=== PATIENT | female | born 1970 | race American Indian/Alaskan Native ===

== ENCOUNTER 2016-04-14 08:47 | Day surgery (SDC) | payer BC, OTHER ==
--- NOTE | 2016-04-11 12:21 | Anesthesia Consultation ---
Anesthesia Consult and Med Hx Date of service: 04/11/16 (Scheduled for hysteroscopy and D&C with Dr. Newell on ) - Airway Anesthetic Teeth Evaluation: Good ROM Head & Neck: Adequate Mental/Hyoid Distance: Adequate Mallampati Class: Class II Intubation Access Assessment: Probably Good - Pulmonary Exam CTA: Yes - Cardiac Exam Cardiac Exam: RRR - Pre-Operative Health Status ASA Pre-Surgery Classification: ASA1, ASA2 Proposed Anesthetic Plan: General - Pre-Anesthesia Comment Pre-Anesthesia Comments: No previous anesthesia complications. - Pulmonary Hx Smoking: No Hx Asthma: No - Cardiovascular System Hx Hypertension: No - Central Nervous System Hx Seizures: No Hx Psychiatric Problems: No - Gastrointestinal Hx Gastroesophageal Reflux Disease: No - Endocrine Hx Non-Insulin Dependent Diabetes: No - Hematic Hx Anemia: No - Other Systems Hx Alcohol Use: Yes (occas) Hx Cancer: No Hx Obesity: No
[2016-04-11 12:34] LABS: Basophils % (Auto) 0.3 % (0.0-1.8); Eosinophils % (Auto) 3.8 % (0.0-4.3); Hematocrit 39.2 % (30.3-42.9); Mean Corpuscular HGB Conc 33 % (30-34); Mean Corpuscular Hemoglobin 30 pg (28-32); Mean Corpuscular Volume 90 fl (79-97); Platelet Count 210 K/mm3 (140-440); Red Blood Count 4.37 M/mm3 (3.65-5.03); Red Cell Distribution Width 14.1 % (13.2-15.2)
[2016-04-11 13:13] LABS: Anion Gap 16 mmol/L; Blood Urea Nitrogen 12 mg/dL (7-17); Calcium 9.3 mg/dL (8.4-10.2); Carbon Dioxide 24 mmol/L (22-30); Glucose 91 mg/dL (65-100); Potassium 4.4 mmol/L (3.6-5.0); Sodium 139 mmol/L (137-145)
--- NOTE | 2016-04-13 14:14 | History and Physical Report ---
History of Present Illness Date of examination: 04/11/16 History of present illness: Patient has been reassessed/reevaluated/re-examined. H&P has been reviewed. No interval changes. This is a 46 years old female who presents with menstrual disorder. The patient complains of spotting, menses and heavy bleeding, but denies lack of menses, dysmenhorrhea, she may be , history of thyroid disease, history of fibroids, history of bleeding disorders, lightheadness, orthostatic symptoms , fatigue and cramping. Menstrual periods have been irregular. Patient with h/ o endometrial polyps and cervical stenosis Vital Signs: Patient Profile: 46 Years Old Female LMP: 03/26/2016 Height: 67 inches (170.18 cm) Weight: 211 pounds (95.91 kg) BMI: 33.04 BSA: 2.07 Menstrual History: LMP (date): 03/26/2016 Current Method of Contraception: None Past History : 4 Term Births: 3 Premature Births: 0 Living Children: 3 Para: 3 Mult. Births: 0 Prev : 0 Aborta: 1 Elect. Ab: 0 Spont. Ab: 1 Ectopics: 0 PROTECTION CONSULTANT History Operations: inginal hernia Lsc ovarian cystectomy Tubal Ligation (1991) LTL Cholecystectomy (05/04/2014) Operative Hysteroscopy: (09/11/2014) Abnormal PAP: positive Uterine Anomaly: negative Infection History HIV Risk Eval: no Hx of STD: None Active Medications (reviewed today): VALTREX 500 MG TABS (VALACYCLOVIR HCL) one by mouth twice a day for 3 days BRISDELLE 7.5 MG CAPS (PAROXETINE MESYLATE) Take one by mouth at bedtime Current Allergies (reviewed today): No known allergies Past Medical History: Cerivical stenosis Endometrial polyps Past Surgical History: Reviewed history from 09/11/2014 and no changes required: inginal hernia Lsc ovarian cystectomy Tubal Ligation (1991) LTL Cholecystectomy (05/04/2014) Operative Hysteroscopy: (09/11/2014) Family History Summary: Reviewed history Last on 07/26/2015 and no changes required:04/13/2016 General Comments - FH: No Family History of Breast Cancer No Family History of Cervical Cancer No Family History of Colon Cancer No Family History of Diabetes, Hypertension, or Coronary Artery Disease No Family History of DVT/PE on OCP Social History: Reviewed history from 06/23/2013 and no changes required: Patient is single Farmworker [employer] Risk Factors: Smoked Tobacco Use: Never smoker Smokeless Tobacco Use: Never Passive smoke exposure: no Drug use: no HIV high-risk behavior: no Alcohol use: yes Type: occ Exercise: no Seatbelt use: 100 % Review of Systems General Denies fever, chills, sweats, anorexia, fatigue, weakness, malaise, weight loss and sleep disorder. Complains of abnormal vaginal bleeding. Denies vaginal discharge, incontinence, dysuria, hematuria, urinary frequency, amenorrhea, menorrhagia, genital sores, decreased libido, painful periods, painful sex, urinary urgency, hot flashes, vaginal dryness, vaginal itching and vaginal odor. CV Denies chest pains, palpitations, syncope, dyspnea on exertion, orthopnea, PND and peripheral edema. Resp Denies cough, dyspnea at rest, excessive sputum, hemoptysis, wheezing and pleurisy. GI Denies nausea, vomiting, diarrhea, constipation, change in bowel habits, abdominal pain, melena, hematochezia, jaundice, gas/bloating, indigestion/ heartburn, dysphagia and odynophagia. Breast Denies left breast lump, right breast lump, nipple discharge, bloody discharge from nipple, breast pain, abnormal mammogram and breast enlargement. Psych Denies depression, anxiety, irritability and mood swings. Past History Past Medical History: other (See HPI) Past Surgical History: Other (See HPI) Family history: other (See HPI) Medications and Allergies Allergies Allergy/AdvReac Type Severity Reaction Status Date / Time No Known Allergies Allergy Verified 04/10/16 10:49 Home Medications Medication Instructions Recorded Confirmed Last Taken Type No Known Home Medications [No 09/04/14 04/10/16 Unknown History Reported Home Medications] Review of Systems Constitutional: other (See HPI) Exam - Physical Exam Narrative exam: HEENT: normocephalic, no lesions or deformities Neck/Thyroid: supple, thyroid normal Skin no significant abnormal lesions or rashes Chest: respiratory effort normal, clear to auscultation CV: regular, normal S1-S2, no murmur, no rub, no gallop Abdomen: normal bowel sounds, soft, nontender, no HSM Musculoskeletal: grossly normal ROM in joints, no joint tenderness or muscle weakness Neuro: no gross anomalities Extremities: no clubbing, cyanosis, or edema PROTECTION CONSULTANT Exams Vulva/Vagina: normal appearance, white discharge, lesions. No evidence of cystocele or rectocele. Cervix: No lesions; no cervical motion tenderness Uterus: normal size and position, midline, mobile Adnexae: no masses or tenderness Rectovaginal: exam defered - Constitutional Vitals: Temp Pulse Resp BP Pulse Ox 97.7 F 74 14 138/88 04/11/16 11:50 04/11/16 11:50 04/11/16 11:50 04/11/16 11:50 Results - Labs CBC & Chem 7: 04/11/16 11:10 04/11/16 11:10 Assessment and Plan - Patient Problems (1) Post-menopausal bleeding Current Visit: Yes Status: Acute Plan to address problem: Diagnosis explained to patient . Questions answered. Diagnosis of post menopausal explained. Malignancy risk explained to patient. Indications for and description of the procedure given. Questions answered. Patient agrees to proceed with hysteroscopy Discussed risk of surgery including infection, bleeding and risk of perforating her uterus. Questions answered. Patient understands and desires to proceed The patient was instructed/informed the following: The normal length of hospital stay for this procedure. (2) Endometrial polyp Current Visit: Yes Status: Acute Plan to address problem: Possible etiology of #1 Discussed with the patient and a preop visit and confirmed here prior to her procedure and if benign findings are seen at time of hysteroscopy with the desired endometrial ablation with NovaSure. Patient understands and is still the risks of possible uterine perforation. Also understands the system is set to not have any burning if perforation is detected. All questions answered and patient desires to proceed (3) Hyperlipidemia Current Visit: Yes Status: Chronic Qualifiers: Hyperlipidemia type: unspecified Qualified Code(s): E78.5 - Hyperlipidemia , unspecified (4) Cervical stenosis (uterine cervix) Current Visit: Yes Status: Chronic Plan to address problem: Diagnosis explained to patient . Questions answered. Patient understands that this diagnosis has prevented the ablility to perform sonohysterogram to evaluate and need for operative hysteroscopy
--- NOTE | 2016-04-14 09:57 | Anesthesia Day of Surgery ---
Anesthesia Day of Surgery - Day of Surgery Patient Examined: Yes Patient H&P Reviewed: Yes Patient is NPO: Yes
[2016-04-14] MEDS ORDERED: PEPCID PO NR (10:00)
[2016-04-14] MEDS ORDERED: VERSED IV NR (10:00)
[2016-04-14] MEDS ORDERED: LACTATED RINGERS 1,000 ML IV SCH (10:00)
[2016-04-14] MEDS ORDERED: ZOFRAN IV PRN (10:29)
[2016-04-14] MEDS ORDERED: PERCOCET 5/325 PO PRN (10:29)
[2016-04-14] MEDS ORDERED: DILAUDID IV PRN (10:29)
[2016-04-14] MEDS ORDERED: DIPRIVAN 10 MG/ML IV ONE (10:34)
[2016-04-14] MEDS ORDERED: XYLOCAINE MPF 2% ONE (10:58)
[2016-04-14] MEDS ORDERED: ZOFRAN ONE (11:18)
[2016-04-14] MEDS ORDERED: TORADOL ONE (11:18)
[2016-04-14] MEDS ORDERED: ZEMURON IV ONE (12:09)
[2016-04-14] MEDS ORDERED: QUELICIN ONE (12:09)
[2016-04-14] MEDS ORDERED: ANCEF ONE ×2 (12:09)
[2016-04-14] MEDS ORDERED: NACL P/F VIAL (10 ML) 10 ML ONE (12:17)
[2016-04-14] MEDS ORDERED: NACL 0.9% IR ONE ×2 (12:19→12:30)
[2016-04-14] MEDS ORDERED: LACTATED RINGERS 1,000 ML ONE (12:19)
[2016-04-14] MEDS ORDERED: BLOXIVERZ ONE (12:26)
[2016-04-14] MEDS ORDERED: ROBINUL ONE (12:26)
[2016-04-14] MEDS ORDERED: MARCAINE 0.5% INFILTRATI ONE (12:30)
[2016-04-14] MEDS ORDERED: DILAUDID ONE (12:43)
--- NOTE | 2016-04-14 12:55 | Short Stay Summary ---
Short Stay Documentation Date of service: 04/14/16 Narrative H&P: See dictated H&P - History Principal diagnosis: postmenopausal bleeding, cervical stenosis possible endometrial polyp Past Medical History: other (See HPI) Past Surgical History: Other (See HPI) - Allergies and Medications Current Medications: Allergies No Known Allergies Allergy (Verified 04/10/16 10:49) Home Medications Medication Instructions Recorded Confirmed Last Taken Type No Known Home Medications [No 09/04/14 04/10/16 Unknown History Reported Home Medications] Active Medications Famotidine (Pepcid) 20 mg PO PREOP NR Stop: 04/14/16 23:59 Last Admin: 04/14/16 10:19 Dose: 20 mg Hydromorphone HCl (Dilaudid) 0.5 mg IV Q10MIN PRN PRN Reason: Pain , Severe (7-10) Stop: 04/14/16 18:00 Lactated Ringer's (Lactated Ringers) 1,000 mls @ 100 mls/hr IV DIRECT JESUS Last Admin: 04/14/16 10:19 Dose: 100 mls/hr Midazolam HCl (Versed) 2 mg IV PREOP NR Stop: 04/14/16 23:59 Last Admin: 04/14/16 10:20 Dose: 2 mg Ondansetron HCl (Zofran) 4 mg IV ONCE PRN PRN Reason: Nausea And Vomiting Stop: 04/14/16 18:00 Oxycodone/Acetaminophen (Percocet 5/325) 1 tab PO ONCE PRN PRN Reason: Pain, Moderate (4-6) Stop: 04/14/16 18:00 - Brief post op/procedure progress note Date of procedure: 04/14/16 Pre-op diagnosis: see dictated operative note Anesthesia: GETA - Hospital course Hospital course: Patient was admitted underwent the above procedure complicated by uterine perforation was repaired without any complications - Disposition Condition at discharge: Good Disposition: DISCHARGED TO HOME OR SELFCARE - Discharge Diagnoses (1) Post-menopausal bleeding Status: Acute (2) Endometrial polyp Status: Acute (3) Hyperlipidemia Status: Chronic Qualifiers: Hyperlipidemia type: unspecified Qualified Code(s): E78.5 - Hyperlipidemia , unspecified (4) Cervical stenosis (uterine cervix) Status: Chronic (5) Perforation of uterus Status: Acute Short Stay Discharge Plan Activity: advance as tolerated Diet: regular Wound: open to air Additional Instructions: Patient office for fever chills nausea vomiting or pain uncontrolled by pain relief. Patient call for heavy vaginal bleeding.
--- NOTE | 2016-04-14 13:08 | Operative Report ---
Operative Report Operative Report: Date of procedure: 04/14/2016 Pre-operative diagnosis: Postmenopausal bleeding, cervical stenosis and possible endometrial polyps Post-operative diagnosis: Same plus uterine perforation Procedure name(s): Operative hysteroscopy with dilatation and curettage. Failed NovaSure ablation. Diagnostic laparoscopy Surgeon: Sanjay Newell MD Angiography Nurse: None Anesthesia: Gen. tracheal EBL: 30 mL Complications: Uterine perforation Findings: At time hysteroscopy patient had a very stenotic cervix. Laparoscopy revealed a fundal perforation no evidence of internal organ damage beyond that bowels were intact no intra-abdominal bleeding patient with normal tubes and ovaries bilaterally. Specimen(s): Endometrial curetting Procedure: Patient brought operating room where general anesthesia was induced without any difficulties placed in dorsal lithotomy position prepped and draped in usual sterile manner. Bladder was emptied with a red rubber catheter. Speculum was placed in the vagina. Uterus was then sounded with a cervical length of proximal forearm centimeters and total uterine length approximately 9 cm. The cervix was then progressively dilated stiff cervical os possibly 15-16 Hegar dilator was placed. The scope was placed which showed very thick then endometrial tissue with inability to see either ostia. D&C was then performed with a banjo curetting until a gritty sensation was felt throughout the uterine cavity. At this time and did place the NovaSure into the uterus with the setting set by the measurements noted above. Cavity assessment failed after 2 tries. Then again placed the hysteroscopy without a clear vision of the perforation. Decision was made to move toward diagnostic laparoscopy. The patient was then prepped for laparoscopy and draped. Place a Higginbotham catheter bladder a [employer] uterine manipulator was placed on difficulty. Then attention was switched to the patient's abdomen. An infra-umbilicus incision was made with a scalpel and then sprayed with hemostat. A 5 mm trocar was placed in this incision while lifting out anterior abdominal wall. Intra-abdominal placement verified directly with laparoscope with no evidence of internal organ damage. The scope mild fluid was seen in addition was a perforation as noted above. Fluid was removed with the suction irrigation. The fundal perforation had minimal bleeding which was resolved with bipolar cauterization. The pelvis then copiously irrigated and suctioned with no active bleeding noted. All instruments were then removed and the patient was deinsufflated. The incisions were closed subcuticular with 4 Vicryl. Patient tolerated procedure well was awakened and operating room and accompanied to recovery room in good condition.
--- NOTE | 2016-04-14 14:12 | Post Anesthesia Evaluation ---
- Post Anesthesia Evaluation Patient Participated: Yes Airway Patent: Yes Stable Respiratory Function: Yes Nausea/Vomiting: No Temp > 96.8F: Yes Pain Manageable: Yes Adequeate Hydration: Yes Anesthesia Complications: No Block Receding Appropriately: Not Applicable Patient on Ventilator: No
[2016-04-14 20:41] VITALS: BP 103/59
== END 2016-04-14 08:48 | disposition home or self-care (01) ==
LOC: OR 08:47
PROVIDERS: ATTEND Obstetrics & Gynecology
DX: N88.2 Stricture and stenosis of cervix uteri (principal); N85.8 Other specified noninflammatory disorders of uterus; E78.5 Hyperlipidemia, unspecified; Z90.49 Acquired absence of other specified parts of digestive tract; Z98.51 Tubal ligation status; Z98.890 Other specified postprocedural states; Z72.89 Other problems related to lifestyle
CPT/HCPCS: 36415; 58558; 58662; 80048; 84703; 85025; 86850; 86900; 86901; 88305; A4217; J0330; J0690; J1170; J1885; J2250; J2405; J2704; J2710; J7120

== ENCOUNTER 2016-10-30 07:24 | Outpatient (CLI) | payer OTHER ==
--- NOTE | 2016-10-30 08:36 | Mammography Report ---
BILATERAL MAMMOGRAM: FINDINGS: The breast tissue is heterogeneously dense, which could obscure detection of small masses (approximately 50%-75% glandular). No mass, distortion, suspicious calcification, or skin change is seen. No significant change compared with prior exams dating back to 2015. CAD was utilized. IMPRESSION: Negative mammogram. There is no mammographic evidence of malignancy. RECOMMENDATION: Follow-up per ACS guidelines. BI-RADS CATEGORY: 1 = Negative ACR BI-RADS MAMMOGRAPHIC CODES: 0 = Needs additional imaging evaluation; 1 = Negative; 2 = Benign; 3 = Probably benign; 4 = Suspicious; 5 = Malignant; 6 = Known biopsy-proven malignancy COMMENT: 1. Dense breast tissue, i.e., adenosis, fibrocystic changes, etc., may obscure an underlying neoplasm. 2. Approximately 10% of cancers are not detected with mammography. 3. A negative mammography report should not delay biopsy if a clinically suspicious mass is present. COMMENT: Patient follow-up letters are generated in [employer].
[2016-10-30] MEDS ORDERED: PROVENTIL IH ONE (20:55)
[2016-10-30] MEDS ORDERED: ATROVENT IH ONE (20:55)
== END 2016-10-30 07:25 | disposition home or self-care (01) ==
LOC: MAMMO 07:24
PROVIDERS: ATTEND Obstetrics & Gynecology
DX: Z12.31 Encounter for screening mammogram for malignant neoplasm of breast (principal); E78.5 Hyperlipidemia, unspecified
CPT/HCPCS: 77067; G0202

== ENCOUNTER 2019-02-17 16:14 | Observation (INO) | payer OTHER ==
--- NOTE | 2019-02-17 16:52 | Cat Scan Report ---
NONENHANCED CT SCAN OF THE HEAD: CT head/brain wo con INDICATION / CLINICAL INFORMATION: 48 years Female; MAIN: CODE STROKE CALL [phone]. TECHNIQUE: Routine CT head without contrast. All CT scans at this location are performed using CT dos e reduction for ALARA by means of automated exposure control. COMPARISON: None. FINDINGS: BRAIN / INTRACRANIAL CONTENTS: No acute hemorrhage, mass effect, midline shift, hydrocephalus, or acu te, large territorial infarct. No chronic infarct or focal atrophy. Normal brain volume and ventricul ar/sulcal size for age. No significant white matter abnormality. CRANIOCERVICAL JUNCTION: No significant abnormality. ORBITS: No significant abnormality of visualized orbits. SINUSES / MASTOIDS: No significant abnormality of the visualized paranasal sinuses or mastoid air flex ls. ADDITIONAL FINDINGS: None. IMPRESSION: I do not see intracerebral hemorrhage I do not see stroke mimics. I do not see CT findings to suggest acute/subacute infarction This exam was performed as part of a code stroke protocol. The exam was completed at 4:31 PM Eastern standard time on 02/17/2019. The exam was reviewed at 3:43 PM Central standard time and Dr. Centeno was notified at 3:45 PM Central standard time. Signer Name: Jillian Jefferson MD Signed: 02/17/2019 4:47 PM Workstation Name: [employer]
--- NOTE | 2019-02-17 16:54 | Emergency Department Report ---
ED Neuro Deficit HPI - General Chief Complaint: Neuro Symptoms/Deficit Stated Complaint: LFT SIDE TINGLE/NUMB Time Seen by Provider: 02/17/19 16:32 Source: patient Mode of arrival: Ambulatory Limitations: No Limitations - History of Present Illness Initial Comments: 48 year female presents to the hospital with strokelike symptoms. Patient started with some pain and swelling to the right side of her face and neck about 11am. She then noticed some change in her taste about 3pm while eating lunch. She's had some problems writing with her right hand. She does not having difficulty walking. As per neurologist history 11 AM with last normal time. Nabor medellin denies dental pain or swelling. No previous history of stroke reported. She does not take aspirin daily. - Related Data Home Medications: Previous Rx's Medication Instructions Recorded Last Taken Type DOXYCYCLINE Hyclate [Vibramycin 100 mg PO Q12HR #14 capsule 04/14/16 Unknown Rx CAP] oxyCODONE /ACETAMINOPHEN [Percocet 1 - 2 tab PO Q4H PRN #30 tablet 04/14/16 Unknown Rx 5/325 mg] Allergies/Adverse Reactions: Allergies Allergy/AdvReac Type Severity Reaction Status Date / Time No Known Allergies Allergy Verified 04/10/16 10:49 ED Review of Systems ROS: Stated complaint: LFT SIDE TINGLE/NUMB Other details as noted in HPI Comment: All other systems reviewed and negative ED Past Medical Hx - Past Medical History Hx Hypertension: No Hx Seizures: No Hx Asthma: No Hx HIV: No - Surgical History Hx Cholecystectomy: Yes Additional Surgical History: L hernia repair 1999 - Social History Smoking Status: Never Smoker - Medications Home Medications: Home Medications Medication Instructions Recorded Confirmed Last Taken Type DOXYCYCLINE Hyclate [Vibramycin 100 mg PO Q12HR #14 capsule 04/14/16 Unknown Rx CAP] oxyCODONE /ACETAMINOPHEN [Percocet 1 - 2 tab PO Q4H PRN #30 tablet 04/14/16 Unknown Rx 5/325 mg] ED Neuro Physical Exam - General Limitations: No Limitations Suspected Stroke: Yes - NIHSS Assessment Interval: Baseline 1a. Level of Consciousness: alert/keenly responsive 1b. LOC Questions: answers both correctly 1c. LOC Commands: performs tasks correctly 2. Best Gaze: normal 3. Visual: no visual loss 4. Facial Palsy: normal symmetrical movement 5b. Motor Arm Right: no drift 5a. Motor Arm Left: no gravity effort 6a. Motor Leg Left: no drift 6b. Motor Leg Right: no drift 7. Limb Ataxia: absent 8. Sensory: normal 9. Best Language: mild/moderate aphasia 10. Dysarthria: normal 11. Extinction/Inattention: no abnormality Total Score: 4 Stroke Severity: Minor Stroke - Other Other exam information: General: No acute distress Head: Atraumatic Eyes: normal appearance ENT: Moist mucous membranes, tenderness at right parotid area at mandible angle Neck: Normal appearance, no midline tenderness Chest: Clear to auscultation bilaterally CV: Regular rate and rhythm Abdomen: Soft, normal bowel sounds, nontender, nondistended, no rebound or guarding Back: Normal inspection Extremity: Normal inspection infection, full range of motion Neuro: Alert O x 3, no facial asymmetry, speech clear, see NIH Psych: Appropriate behavior Skin: No rash ED Course Vital Signs 02/17/19 02/17/19 02/17/19 16:20 18:08 19:15 Temperature 98.6 F 98 F Pulse Rate 91 H 88 79 Respiratory 18 18 19 Rate Blood Pressure 142/91 122/69 Blood Pressure 138/75 [Left] O2 Sat by Pulse 100 99 97 Oximetry - Reevaluation(s) Reevaluation #1: 02/17/19 20:19 pt now has improved rancid in the right leg left leg and able to lift it off the bed against gravity and sensation has improved and equal b/l - Lab Data Result diagrams: 02/17/19 Unknown 02/17/19 Unknown Lab Results 02/17/19 02/17/19 02/17/19 Range/Units 16:33 Unknown Unknown WBC 5.7 (4.5-11.0) K/mm3 RBC 4.56 (3.65-5.03) M/mm3 Hgb 13.5 (10.1-14.3) gm/dl Hct 40.9 (30.3-42.9) % MCV 90 (79-97) fl MCH 30 (28-32) pg MCHC 33 (30-34) % RDW 14.2 (13.2-15.2) % Plt Count 179 (140-440) K/mm3 Lymph % (Auto) 20.2 (13.4-35.0) % [place] % (Auto) 8.6 H (0.0-7.3) % Eos % (Auto) 2.9 (0.0-4.3) % Baso % (Auto) 0.3 (0.0-1.8) % Lymph # 1.2 (1.2-5.4) K/mm3 [place] # 0.5 (0.0-0.8) K/mm3 Eos # 0.2 (0.0-0.4) K/mm3 Baso # 0.0 (0.0-0.1) K/mm3 Seg Neutrophils % 68.0 (40.0-70.0) % Seg Neutrophils # 3.9 (1.8-7.7) K/mm3 PT 12.2 (12.2-14.9) Sec. INR 0.91 (0.87-1.13) APTT 24.9 (24.2-36.6) Sec. Thrombin Time (15.1-19.6) Sec. Sodium (137-145) mmol/L Potassium (3.6-5.0) mmol/L Chloride (98-107) mmol/L Carbon Dioxide (22-30) mmol/L Anion Gap mmol/L BUN (7-17) mg/dL Creatinine (0.7-1.2) mg/dL Estimated GFR ml/min BUN/Creatinine Ratio % Glucose (65-100) mg/dL POC Glucose 111 H (70-105) Calcium (8.4-10.2) mg/dL Troponin T (0.00-0.029) ng/mL 02/17/19 02/17/19 Range/Units Unknown Unknown WBC (4.5-11.0) K/mm3 RBC (3.65-5.03) M/mm3 Hgb (10.1-14.3) gm/dl Hct (30.3-42.9) % MCV (79-97) fl MCH (28-32) pg MCHC (30-34) % RDW (13.2-15.2) % Plt Count (140-440) K/mm3 Lymph % (Auto) (13.4-35.0) % [place] % (Auto) (0.0-7.3) % Eos % (Auto) (0.0-4.3) % Baso % (Auto) (0.0-1.8) % Lymph # (1.2-5.4) K/mm3 [place] # (0.0-0.8) K/mm3 Eos # (0.0-0.4) K/mm3 Baso # (0.0-0.1) K/mm3 Seg Neutrophils % (40.0-70.0) % Seg Neutrophils # (1.8-7.7) K/mm3 PT (12.2-14.9) Sec. INR (0.87-1.13) APTT (24.2-36.6) Sec. Thrombin Time 18.0 (15.1-19.6) Sec. Sodium 142 (137-145) mmol/L Potassium 3.9 (3.6-5.0) mmol/L Chloride 105.4 (98-107) mmol/L Carbon Dioxide 20 L (22-30) mmol/L Anion Gap 21 mmol/L BUN 12 (7-17) mg/dL Creatinine 0.8 (0.7-1.2) mg/dL Estimated GFR > 60 ml/min BUN/Creatinine Ratio 15 % Glucose 107 H (65-100) mg/dL POC Glucose (70-105) Calcium 9.5 (8.4-10.2) mg/dL Troponin T < 0.010 (0.00-0.029) ng/mL - EKG Data -: EKG Interpreted by Mn EKG shows normal: sinus rhythm Rate: normal - Radiology Data Radiology results: report reviewed NONENHANCED CT SCAN OF THE HEAD: CT head/brain wo con INDICATION / CLINICAL INFORMATION: 48 years Female; MAIN: CODE STROKE CALL [phone]. TECHNIQUE: Routine CT head without contrast. All CT scans at this location are performed using CT dose reduction for ALARA by means of automated exposure control. COMPARISON: None. FINDINGS: BRAIN / INTRACRANIAL CONTENTS: No acute hemorrhage, mass effect, midline shift, hydrocephalus, or acute, large territorial infarct. No chronic infarct or focal atrophy. Normal brain volume and ventricular/sulcal size for age. No significant white matter abnormality. CRANIOCERVICAL JUNCTION: No significant abnormality. ORBITS: No significant abnormality of visualized orbits. SINUSES / MASTOIDS: No significant abnormality of the visualized paranasal sinuses or mastoid air cells. ADDITIONAL FINDINGS: None. IMPRESSION: I do not see intracerebral hemorrhage I do not see stroke mimics. I do not see CT findings to suggest acute/subacute infarction This exam was performed as part of a code stroke protocol. The exam was completed at 4:31 PM Eastern standard time on 02/17/2019. The exam was reviewed at 3:43 PM Central standard time and Dr. Centeno was notified at 3:45 PM Central standard time. CTA HEAD WITH CONTRAST HISTORY: Stroke COMPARISON: None. TECHNIQUE: Routine non-contrast CT Head, CTA of the head and post-contrast CT Head are performed. 3-D/MIP reformats postprocessed. All CT scans at this location are performed using CT dose reduction for ALARA by means of automated exposure control CONTRAST: 100 ml of Omnipaque 350 FINDINGS: CTA Head: Intracranial vertebral arteries: No significant abnormality. Basilar artery: No significant abnormality. Posterior cerebral arteries: No significant abnormality. Intracranial internal carotid arteries: No significant abnormality. Anterior cerebral arteries: No significant abnormality. Middle cerebral arteries: No significant abnormality. Dural venous sinuses:Not optimally opacified. No significant abnormality. Additional findings: None. IMPRESSION: 1. Normal CTA of the head CTA NECK WITH CONTRAST HISTORY: Stroke COMPARISON: None. TECHNIQUE: Routine CTA of the neck was performed. 3-D/MIP reformats were postprocessed. Percentage stenosis is determined by direct quantitative measurements of diseased internal carotid artery diameter compared with normal distal internal carotid artery reference segments or by criteria similar to NASCET where applicable.All CT scans at this location are performed using CT dose reduction for ALARA by means of automated exposure control CONTRAST: 100 ml of Omnipaque 350 FINDINGS: Aortic arch: No significant abnormality. Cervical vertebral arteries: No significant abnormality. Common carotid arteries: No significant abnormality. Carotid bifurcations: Normal Cervical internal carotid arteries: No significant abnormality. Additional findings: None. IMPRESSION: 1. Normal CTA of the neck. - Medical Decision Making pt ct head/angio head and neck are negative for acute findings pt has pain and swelling over right parotid area, parotitis is in differential numbness right face and arm originally with left leg weakness on exam. improving in ed see neuro consult note. no tpa based on the time of onset of 11 AM. asa provided admission for cva workup. hospitalist informed - Differential Diagnosis parotits, cva, ta Critical Care Time: No Critical care attestation.: If time is entered above; I have spent that time in minutes in the direct care of this critically ill patient, excluding procedure time. ED Disposition Clinical Impression: Stroke-like symptom Disposition: DC-09 OP ADMIT IP TO THIS HOSP Is pt being admited?: Yes Condition: Stable Time of Disposition: 19:31 (Dr ambrocio/hospitalist)
[2019-02-17 17:19] LABS: Basophils % (Auto) 0.3 % (0.0-1.8); Eosinophils # (Auto) 0.2 K/mm3 (0.0-0.4); Eosinophils % (Auto) 2.9 % (0.0-4.3); Hematocrit 40.9 % (30.3-42.9); Hemoglobin 13.5 gm/dl (10.1-14.3); Lymphocytes # (Auto) 1.2 K/mm3 (1.2-5.4); Lymphocytes % (Auto) 20.2 % (13.4-35.0); Mean Corpuscular HGB Conc 33 % (30-34); Mean Corpuscular Volume 90 fl (79-97); Monocytes # (Auto) 0.5 K/mm3 (0.0-0.8); Monocytes % (Auto) 8.6 % (0.0-7.3); Platelet Count 179 K/mm3 (140-440); Red Blood Count 4.56 M/mm3 (3.65-5.03); Red Cell Distribution Width 14.2 % (13.2-15.2)
[2019-02-17 17:29] LABS: INR 0.91 (0.87-1.13)
[2019-02-17 17:30] LABS: Partial Thromboplastin Time 24.9 Sec. (24.2-36.6)
[2019-02-17 17:59] LABS: BUN/Creatinine Ratio 15; Blood Urea Nitrogen 12 mg/dL (7-17); Calcium 9.5 mg/dL (8.4-10.2); Hemolysis Index 33
--- NOTE | 2019-02-17 18:02 | Cat Scan Report ---
CTA HEAD WITH CONTRAST HISTORY: Stroke COMPARISON: None. TECHNIQUE: Routine non-contrast CT Head, CTA of the head and post-contrast CT Head are performed. 3-D /MIP reformats postprocessed. All CT scans at this location are performed using CT dose reduction for ALARA by means of automated exposure control CONTRAST: 100 ml of Omnipaque 350 FINDINGS: CTA Head: Intracranial vertebral arteries: No significant abnormality. Basilar artery: No significant abnormality. Posterior cerebral arteries: No significant abnormality. Intracranial internal carotid arteries: No significant abnormality. Anterior cerebral arteries: No significant abnormality. Middle cerebral arteries: No significant abnormality. Dural venous sinuses:Not optimally opacified. No significant abnormality. Additional findings: None. IMPRESSION: 1. Normal CTA of the head Signer Name: Jillian Jefferson MD Signed: 02/17/2019 5:57 PM Workstation Name: [id number]
--- NOTE | 2019-02-17 18:04 | Cat Scan Report ---
CTA NECK WITH CONTRAST HISTORY: Stroke COMPARISON: None. TECHNIQUE: Routine CTA of the neck was performed. 3-D/MIP reformats were postprocessed. Percentage s tenosis is determined by direct quantitative measurements of diseased internal carotid artery diamete r compared with normal distal internal carotid artery reference segments or by criteria similar to NA SCET where applicable.All CT scans at this location are performed using CT dose reduction for ALARA b y means of automated exposure control CONTRAST: 100 ml of Omnipaque 350 FINDINGS: Aortic arch: No significant abnormality. Cervical vertebral arteries: No significant abnormality. Common carotid arteries: No significant abnormality. Carotid bifurcations: Normal Cervical internal carotid arteries: No significant abnormality. Additional findings: None. IMPRESSION: 1. Normal CTA of the neck. Signer Name: Jillian Jefferson MD Signed: 02/17/2019 5:59 PM Workstation Name: [id number]
[2019-02-17] MEDS ORDERED: ASPIRIN 325 MG TAB PO ONE (18:33)
[2019-02-17] MEDS ORDERED: ONDANSETRON 4 MG/2 ML INJ IV ONE (20:18)
[2019-02-17] MEDS ORDERED: MORPHINE 4 MG/1 ML INJ IV ONE (20:18)
--- NOTE | 2019-02-17 21:14 | History and Physical Report ---
History of Present Illness Date of examination: 02/17/19 Date of admission: 02/17/19 20:09 Chief complaint: Difficulty writing with Rt Hand ANd LLE weakness History of present illness: 48 year female presents to the hospital with strokelike symptoms. Patient started with some pain and swelling to the right side of her face and neck about 11am. She then noticed some change in her taste about 3pm while eating lunch. She's had some problems writing with her right hand. She does not having difficulty walking. As per neurologist history 11 AM with last normal time. Patient denies dental pain or swelling. No previous history of stroke reported. She does not take aspirin daily.Also complains of LLE weakness which is better now. Past Medical History None Surgical History Cholecystectomy: Yes Additional Surgical History: L hernia repair 1999 Social History Smoking Status: Never Smoker Family history Htn Medications Home Medications: Home Medications Medication Instructions Recorded Confirmed Last Taken Type DOXYCYCLINE Hyclate [Vibramycin 100 mg PO Q12HR #14 capsule 04/14/16 Unknown Rx CAP] oxyCODONE /ACETAMINOPHEN [Percocet 1 - 2 tab PO Q4H PRN #30 tablet 04/14/16 Unknown Rx 5/325 mg] Review of Systems complaint: LFT SIDE TINGLE/NUMB Other details as noted in HPI Comment: All other systems reviewed and negative Medications and Allergies Allergies Allergy/AdvReac Type Severity Reaction Status Date / Time No Known Allergies Allergy Verified 04/10/16 10:49 Home Medications Medication Instructions Recorded Confirmed Last Taken Type DOXYCYCLINE Hyclate [Vibramycin 100 mg PO Q12HR #14 capsule 04/14/16 Unknown Rx CAP] oxyCODONE /ACETAMINOPHEN [Percocet 1 - 2 tab PO Q4H PRN #30 tablet 04/14/16 Unk nown Rx 5/325 mg] Exam - Constitutional Vitals: Temp Pulse Resp BP Pulse Ox 98 F 79 19 122/69 97 02/17/19 19:15 02/17/19 19:15 02/17/19 19:15 02/17/19 19:15 02/17/19 19:15 General appearance: Present: no acute distress, well-nourished - EENT Eyes: Present: PERRL ENT: hearing intact, clear oral mucosa, other (Bilateral parotid gland swelling) - Neck Neck: Present: supple, normal ROM - Respiratory Respiratory effort: normal Respiratory: bilateral: CTA - Cardiovascular Heart rate: 78 Rhythm: regular Heart Sounds: Present: S1 & S2. Absent: rub, click - Extremities Extremities: no ischemia, pulses intact, pulses symmetrical, No edema Peripheral Pulses: within normal limits - Abdominal General gastrointestinal: Present: soft, non-tender, non-distended, normal bowel sounds Female genitourinary: Present: normal - Integumentary Integumentary: Present: clear, warm, dry - Musculoskeletal Musculoskeletal: gait normal, strength equal bilaterally - Psychiatric Psychiatric: appropriate mood/affect, intact judgment & insight - Neurologic Neurologic: CNII-XII intact, moves all extremities - Allied Health Allied health notes reviewed: nursing, case management Results - Labs CBC & Chem 7: 02/18/19 04:07 02/18/19 04:07 Labs: Laboratory Last Values WBC 5.7 K/mm3 (4.5-11.0) 02/17/19 Unknown RBC 4.56 M/mm3 (3.65-5.03) 02/17/19 Unknown Hgb 13.5 gm/dl (10.1-14.3) 02/17/19 Unknown Hct 40.9 % (30.3-42.9) 02/17/19 Unknown MCV 90 fl (79-97) 02/17/19 Unknown MCH 30 pg (28-32) 02/17/19 Unknown MCHC 33 % (30-34) 02/17/19 Unknown RDW 14.2 % (13.2-15.2) 02/17/19 Unknown Plt Count 179 K/mm3 (140-440) 02/17/19 Unknown Lymph % (Auto) 20.2 % (13.4-35.0) 02/17/19 Unknown [place] % (Auto) 8.6 % (0.0-7.3) H 02/17/19 Unknown Eos % (Auto) 2.9 % (0.0-4.3) 02/17/19 Unknown Baso % (Auto) 0.3 % (0.0-1.8) 02/17/19 Unknown Lymph # 1.2 K/mm3 (1.2-5.4) 02/17/19 Unknown [place] # 0.5 K/mm3 (0.0-0.8) 02/17/19 Unknown Eos # 0.2 K/mm3 (0.0-0.4) 02/17/19 Unknown Baso # 0.0 K/mm3 (0.0-0.1) 02/17/19 Unknown Seg Neutrophils % 68.0 % (40.0-70.0) 02/17/19 Unknown Seg Neutrophils # 3.9 K/mm3 (1.8-7.7) 02/17/19 Unknown PT 12.2 Sec. (12.2-14.9) 02/17/19 Unknown INR 0.91 (0.87-1.13) 02/17/19 Unknown APTT 24.9 Sec. (24.2-36.6) 02/17/19 Unknown Thrombin Time 18.0 Sec. (15.1-19.6) 02/17/19 Unknown Sodium 142 mmol/L (137-145) 02/17/19 Unknown Potassium 3.9 mmol/L (3.6-5.0) 02/17/19 Unknown Chloride 105.4 mmol/L (98-107) 02/17/19 Unknown Carbon Dioxide 20 mmol/L (22-30) L 02/17/19 Unknown Anion Gap 21 mmol/L 02/17/19 Unknown BUN 12 mg/dL (7-17) 02/17/19 Unknown Creatinine 0.8 mg/dL (0.7-1.2) 02/17/19 Unknown Estimated GFR > 60 ml/min 02/17/19 Unknown BUN/Creatinine Ratio 15 % 02/17/19 Unknown Glucose 107 mg/dL (65-100) H 02/17/19 Unknown POC Glucose 111 (70-105) H 02/17/19 16:33 Calcium 9.5 mg/dL (8.4-10.2) 02/17/19 Unknown Troponin T < 0.010 ng/mL (0.00-0.029) 02/17/19 Unknown Short CBC 02/17/19 02/18/19 Range/Units Unknown 04:07 WBC 5.7 5.0 (4.5-11.0) K/mm3 Hgb 13.5 13.2 (10.1-14.3) gm/dl Hct 40.9 40.3 (30.3-42.9) % Plt Count 179 181 (140-440) K/mm3 BMP 02/17/19 02/18/19 Unknown 04:07 Sodium 142 142 Potassium 3.9 4.0 Chloride 105.4 107.0 Carbon Dioxide 20 L 21 L BUN 12 12 Creatinine 0.8 0.7 Glucose 107 H 93 Calcium 9.5 8.9 Cardiac Enzymes 02/17/19 Range/Units Unknown Troponin T < 0.010 (0.00-0.029) ng/mL Liver Function 02/18/19 Range/Units 04:07 Total Bilirubin 0.50 (0.1-1.2) mg/dL AST 16 (5-40) units/L ALT 20 (7-56) units/L Alkaline Phosphatase 71 (35-129) units/L Albumin 3.5 L (3.9-5) g/dL - Imaging and Cardiology EKG: report reviewed Assessment and Plan Advance Directives: Yes (Full code) VTE prophylaxis?: Chemical Plan of care discussed with patient/family: Yes - Patient Problems (1) TIA (transient ischemic attack) Current Visit: Yes Status: Acute Plan to address problem: Probably conversion reaction Her symptoms are not consistent with CVA or TIA She complains of Rt hand weakness and LLE weakness which is Inconsistent TIA workup including MRI and CDS Discharge if cleared by neurology (2) Parotid gland fullness Current Visit: Yes Status: Acute Plan to address problem: Non specifis Patient is morbidly obese (3) DVT prophylaxis Current Visit: Yes Status: Acute Plan to address problem: On Heparin and GI prophylaxis
[2019-02-17] MEDS ORDERED: ONDANSETRON 4 MG/2 ML INJ IV PRN (21:30)
[2019-02-17] MEDS ORDERED: METOCLOPRAMIDE 10 MG/2 ML INJ IV PRN (21:30)
[2019-02-17] MEDS ORDERED: HYDROmorphone 1 MG/1 ML INJ IV PRN (21:30)
[2019-02-17] MEDS ORDERED: oxyCODONE /ACETAMINOPHEN 5-325MG TAB PO PRN (21:30)
[2019-02-17] MEDS ORDERED: ACETAMINOPHEN 325 MG TAB PO PRN (21:30)
[2019-02-17] MEDS ORDERED: PRAVASTATIN 40 MG TAB PO SCH (22:00)
[2019-02-17] MEDS ORDERED: SODIUM CHLORIDE 0.9% 1000 ML 1,000 ML IV SCH (22:00)
--- NOTE | 2019-02-17 23:23 | Consultation ---
History of Present Illness - History of Present Illness [facility] Tele[facility] Consult [facility] Date of Service: 02/17/2019 16:32:09 Impression: RO Acute Ischemic Stroke Comments: The patient has c.o of her jaw swelling and she could not breath and could not write her name. She has left leg weakess on examination She also had tasted at 3:30 that her taste was off. Mechanism of Stroke: Possible Thromboembolic Metrics: Last Known Well: 02/17/2019 11:00:00 [facility] Notification Time: 02/17/2019 16:30:34 Arrival Time: 02/17/2019 16:44:03 Stamp Time: 02/17/2019 16:32:09 Time First Login Attempt: 02/17/2019 16:34:43 Video Start Time: 02/17/2019 16:34:43 Symptoms: jaw swelling and could not write name NIHSS Start Assessment Time: 02/17/2019 16:44:40 Patient is not a candidate for tPA. Patient was not deemed candidate for tPA thrombolytics because of Last Well Known Above 4.[address] head showed no acute hemorrhage or acute core infarct. Advanced imaging CTA head and neck obtained. Advanced imaging CTP obtained. CTA head/neck is negative. Radiologist was called back for review of advanced imaging on 02/17/2019 16:44:33 ER Physician notified of the decision on thrombolytics management on 02/17/2019 16:44:34 Our recommendations are outlined below. Recommendations: Activate Stroke Protocol Admission/Order Set Stroke/Telemetry Floor Neuro Checks Bedside Swallow Eval DVT Prophylaxis IV Fluids, Normal Saline Head of Bed Below 30 Degrees Euglycemia and Avoid Hyperthermia (PRN Acetaminophen) Antiplatelet Therapy Recommended Lipid Panel to Be Obtained, if Not Done in the Last Three Months Therapies: Physical Therapy, Occupational Therapy, Speech Therapy Assessment When Applicable Dysphaghia Screen: Swallow Evaluation, Bedside NPO Until Swallow Evaluation DVT prophylaxis: Choice of Primary Team Sign Out: Discussed with Emergency Department Provider History of Present Illness: Patient is a 48 year old Female. THe patient had someone's jaw swell up. She states that she had right neck pain from this morning, and she tried to eat. Neck pain, is there. CT head showed no acute hemorrhage or acute core infarct. Last seen normal was beyond 4.5 hours of presentation. There is no history of hemorrhagic complications or intracranial hemorrhage. There is no history of Recent Anticoagulants. There is no history of recent major surgery. There is no history of recent stroke. Examination: BP(178/95), Pulse(90), Blood Glucose(85) 1A: Level of Consciousness - Alert; keenly responsive + 0 1B: Ask Month and Age - Both Questions Right + 0 1C: Blink Eyes & Squeeze Hands - Performs Both Tasks + 0 2: Test Horizontal Extraocular Movements - Normal + 0 3: Test Visual [place] - No Visual Loss + 0 4: Test Facial Palsy (Use Grimace if Obtunded) - Normal symmetry + 0 5A: Test Left Arm Motor Drift - No Drift for 10 Seconds + 0 5B: Test Right Arm Motor Drift - No Drift for 10 Seconds + 0 6A: Test Left Leg Motor Drift - No Drift for 5 Seconds + 4 6B: Test Right Leg Motor Drift - No Drift for 5 Seconds + 0 7: Test Limb Ataxia (FNF/Heel-Davis) - No Ataxia + 0 8: Test Sensation - Normal; No sensory loss + 0 9: Test Language/Aphasia - Normal; No aphasia + 0 10: Test Dysarthria - Normal + 0 11: Test Extinction/Inattention - No abnormality + 0 NIHSS Score: 4 Patient was informed the Neurology Consult would happen via TeleHealth consult by way of interactive audio and video telecommunications and consented to receiving care in this manner. Due to the immediate potential for life-threatening deterioration due to underlying acute neurologic illness, I spent 35 minutes providing critical care. This time includes time for face to face visit via telemedicine, review of medical records, imaging studies and discussion of findings with providers, the patient and/or family. Dr Roberto [facility] Medications and Allergies Allergies Allergy/AdvReac Type Severity Reaction Status Date / Time No Known Allergies Allergy Verified 04/10/16 10:49 Home Medications Medication Instructions Recorded Confirmed Last Taken Type DOXYCYCLINE Hyclate [Vibramycin 100 mg PO Q12HR #14 capsule 04/14/16 Unknown Rx CAP] oxyCODONE /ACETAMINOPHEN [Percocet 1 - 2 tab PO Q4H PRN #30 tablet 04/14/16 Unknown Rx 5/325 mg] Active Meds: Active Medications Acetaminophen (Tylenol) 650 mg PO Q4H PRN PRN Reason: Pain MILD(1-3)/Fever >100.5/HERBERT Aspirin (Aspirin) 325 mg PO QDAY JESUS Famotidine (Pepcid) 20 mg PO BID JESUS Heparin Sodium (Porcine) (Heparin) 5,000 unit SUB-Q Q12HR JESUS Hydromorphone HCl (Dilaudid) 0.5 mg IV Q3H PRN PRN Reason: Pain , Severe (7-10) Sodium Chloride (Nacl 0.9% 1000 Ml) 1,000 mls @ 75 mls/hr IV DIRECT JESUS Metoclopramide HCl (Reglan) 10 mg IV Q6H PRN PRN Reason: Nausea And Vomiting Ondansetron HCl (Zofran) 4 mg IV Q8H PRN PRN Reason: Nausea And Vomiting Oxycodone/Acetaminophen (Percocet 5/325) 1 tab PO Q6H PRN PRN Reason: Pain, Moderate (4-6) Pravastatin Sodium (Pravachol) 40 mg PO QHS JESUS Sodium Chloride (Sodium Chloride Flush Syringe 10 Ml) 10 ml IV BID JESUS Sodium Chloride (Sodium Chloride Flush Syringe 10 Ml) 10 ml IV PRN PRN PRN Reason: LINE FLUSH Exam - Constitutional Vitals: Temp Pulse Resp BP Pulse Ox 97.9 F 71 18 127/74 95 02/17/19 22:00 02/17/19 21:58 02/17/19 21:58 02/17/19 21:58 02/17/19 21:58 Results - Labs CBC & Chem 7: 02/17/19 Unknown 02/17/19 Unknown Labs: Abnormal lab results 02/17/19 02/17/19 02/17/19 Range/Units 16:33 Unknown Unknown [place] % (Auto) 8.6 H (0.0-7.3) % Carbon Dioxide 20 L (22-30) mmol/L Glucose 107 H (65-100) mg/dL POC Glucose 111 H (70-105)
[2019-02-17] MEDS: HEPARIN 5,000 UNIT/1 ML VIAL SUB-Q SCH (23:40)
[2019-02-17] MEDS: FAMOTIDINE 20 MG TAB PO SCH (23:41)
[2019-02-18 05:02] LABS: Basophils % (Auto) 0.3 % (0.0-1.8); Eosinophils # (Auto) 0.2 K/mm3 (0.0-0.4); Hematocrit 40.3 % (30.3-42.9); Hemoglobin 13.2 gm/dl (10.1-14.3); Lymphocytes # (Auto) 1.3 K/mm3 (1.2-5.4); Lymphocytes % (Auto) 24.8 % (13.4-35.0); Mean Corpuscular HGB Conc 33 % (30-34); Mean Corpuscular Volume 90 fl (79-97); Monocytes # (Auto) 0.4 K/mm3 (0.0-0.8); Monocytes % (Auto) 8.6 % (0.0-7.3); Platelet Count 181 K/mm3 (140-440); Red Blood Count 4.48 M/mm3 (3.65-5.03); Red Cell Distribution Width 14.3 % (13.2-15.2)
[2019-02-18 06:09] LABS: Alanine Aminotransferase 20 units/L (7-56); Albumin 3.5 g/dL (3.9-5); BUN/Creatinine Ratio 17; Blood Urea Nitrogen 12 mg/dL (7-17); Calcium 8.9 mg/dL (8.4-10.2); Chol/HDL Ratio 5.37 %; HDL Cholesterol 35 mg/dL (40-59); Hemolysis Index 11; LDL Cholesterol,Direct 140 mg/dL (50-130)
[2019-02-18] MEDS: FAMOTIDINE 20 MG TAB PO SCH (09:52)
[2019-02-18] MEDS: HEPARIN 5,000 UNIT/1 ML VIAL SUB-Q SCH (09:53)
[2019-02-18] MEDS ORDERED: ASPIRIN 325 MG TAB PO SCH (10:00)
[2019-02-18 10:43] VITALS: BP 126/75
[2019-02-18] MEDS ORDERED: LORazepam 2 MG/ML VIAL IV ONE (12:19)
--- NOTE | 2019-02-18 12:26 | Discharge Summary ---
Providers - Providers Date of Admission: 02/17/19 20:09 Attending physician: ADRIENNE WILCOX MD 02/17/19 21:30 Consult to Physician [CONS] Routine Comment: Consulting Provider: BRIANDA MUSE Physician Instructions: Reason For Exam: TIA./Conversion disorgeer 02/17/19 21:37 Occupational Therapy Evaluate and Treat [CONS] Routine Comment: Reason For Exam: Neuro deficits Physical Therapy Evaluation and Treat [CONS] Routine Comment: Reason For Exam: Neuro deficits [facility] Reason for admission: tia Condition: Stable Hospital course: 48 year female presents to the hospital with strokelike symptoms. Patient started with some pain and swelling to the right side of her face and neck about 11am. She then noticed some change in her taste about 3pm while eating lunch. She's had some problems writing with her right hand. She does not having difficulty walking. As per neurologist history 11 AM with last normal time. Patient denies dental pain or swelling. No previous history of stroke reported. She does not take aspirin daily.Also complains of LLE weakness which is better now. imaging studies inlcuing MRI was negative Patient BP was controlled and then discharged. Counselling about diagnosis was provided ASA AND STATIN started 1) TIA (transient ischemic attack) (2) Parotid gland fullness Disposition: DC- TO HOME OR SELFCARE Time spent for discharge: 35 mins Core Measure Documentation - Palliative Care Palliative Care/ Comfort Measures: Not Applicable - Core Measures Any of the following diagnoses?: none Exam - Constitutional Vitals: Temp Pulse Resp BP Pulse Ox 97.9 F 80 18 126/75 95 02/18/19 10:39 02/18/19 10:39 02/18/19 10:39 02/18/19 10:39 02/18/19 10:39 General appearance: Present: no acute distress, well-nourished - EENT Eyes: Present: PERRL - Neck Neck: Present: supple - Respiratory Respiratory effort: normal Respiratory: bilateral: CTA - Cardiovascular Rhythm: regular Heart Sounds: Present: S1 & S2. Absent: systolic murmur - Extremities Extremities: no ischemia, pulses intact, pulses symmetrical, No edema, normal temperature, normal color, Full ROM Peripheral Pulses: within normal limits - Abdominal General gastrointestinal: Present: soft, non-tender, non-distended, normal bowel sounds - Integumentary Integumentary: Present: clear, warm, dry - Musculoskeletal Musculoskeletal: strength equal bilaterally - Psychiatric Psychiatric: appropriate mood/affect, intact judgment & insight, memory intact, cooperative - Neurologic Neurologic: CNII-XII intact, moves all extremities - Allied Health Allied health notes reviewed: nursing, social work Plan Activity: advance as tolerated, fall precautions Diet: low fat Special Instructions: record daily weights, record daily BP diary Follow up with: XIMENA PEDROZA MD [Primary Care Provider] - 3-5 Days SAVANAH BEYER MD [Staff Physician] - 7 Days Prescriptions: AtorvaSTATin [Lipitor] 40 mg PO QHS #30 tablet Aspirin [Adult Aspirin] 81 mg PO DAILY #30 tablet.
--- NOTE | 2019-02-18 13:10 | Consultation ---
History of Present Illness Consult date: 02/18/19 Reason for Consult: Possible TIA Chief complaint: Left sided weakness History of present illness: Patient is a 48 y/o woman w/ no significant PMH. Yesterday, at about 3pm, while eating lunch, she noted that she had change in taste sensation. Patient states that she had shortness of breath, and couldnt swallow, and began to "panic." She then began to notice LLE weakness. She was brought to [facility] for further evaluation. Patient notes that she was unable to write properly when she came to the ER. Symptoms improved, and late last night she notes that she was able to move her LLE normally. She also notes that she eventually was able to write normally again this morning. Past History Past Medical History: No medical history Social history: no significant social history Family history: no significant family history Medications and Allergies Allergies Allergy/AdvReac Type Severity Reaction Status Date / Time No Known Allergies Allergy Verified 04/10/16 10:49 Home Medications Medication Instructions Recorded Confirmed Last Taken Type DOXYCYCLINE Hyclate [Vibramycin 100 mg PO Q12HR #14 capsule 04/14/16 Unknown Rx CAP] oxyCODONE /ACETAMINOPHEN [Percocet 1 - 2 tab PO Q4H PRN #30 tablet 04/14/16 Unknown Rx 5/325 mg] Aspirin [Adult Aspirin] 81 mg PO DAILY #30 tablet. 02/18/19 Unknown Rx AtorvaSTATin [Lipitor] 40 mg PO QHS #30 tablet 02/18/19 Unknown Rx Active Meds: Active Medications Acetaminophen (Tylenol) 650 mg PO Q4H PRN PRN Reason: Pain MILD(1-3)/Fever >100.5/HERBERT Last Admin: 02/18/19 07:28 Dose: 650 mg Documented by: Aspirin (Aspirin) 325 mg PO QDAY [facility] Last Admin: 02/18/19 09:52 Dose: 325 mg Documented by: Atorvastatin Calcium (Lipitor) 40 mg PO QHS [facility] Famotidine (Pepcid) 20 mg PO BID [facility] Last Admin: 02/18/19 09:52 Dose: 20 mg Documented by: Heparin Sodium (Porcine) (Heparin) 5,000 unit SUB-Q Q12HR [facility] Last Admin: 02/18/19 09:53 Dose: 5,000 unit Documented by: Hydromorphone HCl (Dilaudid) 0.5 mg IV Q3H PRN PRN Reason: Pain , Severe (7-10) Sodium Chloride (Nacl 0.9% 1000 Ml) 1,000 mls @ 75 mls/hr IV DIRECT [facility] Last Admin: 02/17/19 23:41 Dose: 75 mls/hr Documented by: Metoclopramide HCl (Reglan) 10 mg IV Q6H PRN PRN Reason: Nausea And Vomiting Ondansetron HCl (Zofran) 4 mg IV Q8H PRN PRN Reason: Nausea And Vomiting Oxycodone/Acetaminophen (Percocet 5/325) 1 tab PO Q6H PRN PRN Reason: Pain, Moderate (4-6) Sodium Chloride (Sodium Chloride Flush Syringe 10 Ml) 10 ml IV BID [facility] Last Admin: 02/18/19 09:54 Dose: 10 ml Documented by: Sodium Chloride (Sodium Chloride Flush Syringe 10 Ml) 10 ml IV PRN PRN PRN Reason: LINE FLUSH Review of Systems All systems: negative Neurological: weakness Physical Examination - Vital Signs Vital Signs: Vital Signs Temp Pulse Resp BP Pulse Ox 98.6 F 91 H 18 142/91 96 02/17/19 16:20 02/17/19 16:20 02/17/19 16:20 02/17/19 16:20 02/17/19 16:20 - Physical Exam Narrative exam: Patient is alert, awake, oriented x4. Follows complex commands. PERRL, EOMI, VFF, no facial weakness noted, tongue midline, b/l intact to LT. 5/5 strength in all extremities. Noted to have +ve stone sign on left. b/l intact to LT. B/l intact to FTN and HTS. 2+ reflexes throughout. No dysarthria or aphasia noted. - Constitutional General appearance: comfortable - EENT EENT: Present: ATNC, PERRL, mucous membranes moist, hearing intact, vision intact - Respiratory Respiratory: Present: lungs clear, normal breath sounds - Cardiovascular Cardiovascular: Present: regular rate, normal S1, normal S2 Extremities: Present: no clubbing, cyanosis, no inflammation - Gastrointestinal Gastrointestinal: Present: normoactive bowel sounds, soft, non-tender - Integumentary Integumentary: Present: normal - Musculoskeletal Musculoskeletal: Present: no fluid collection, no pain - Psychiatric Psychiatric: Present: mood/affect appropriate - Level of Consciousness 1a. Level of Consciousness: alert/keenly responsive - LOC Questions 1b. LOC Questions: answers both correctly - LOC Command 1c. LOC Commands: performs tasks correctly - Best Gaze 2. Best Gaze: normal - Visual 3. Visual: no visual loss - Facial Palsy 4. Facial Palsy: normal symmetrical movement - Motor Arm 5a. Motor Arm Left: no drift 5b. Motor Arm Right: no drift - Motor Leg 6a. Motor Leg Left: no drift 6b. Motor Leg Right: no drift - Limb Ataxia 7. Limb Ataxia: absent - Sensory 8. Sensory: normal - Best Language 9. Best Language: no aphasia - Dysarthria 10. Dysarthria: normal - Extinction and Inattention 11. Extinction/Inattention: no abnormality - Scoring Total Score: 0 Stroke Severity: No Stroke Symptoms Results - Laboratory Findings CBC and BMP: 02/18/19 04:07 02/18/19 04:07 Abnormal Lab Findings: Abnormal Labs 02/17/19 02/17/19 02/17/19 16:33 Unknown Unknown Loving % (Auto) 8.6 H Carbon Dioxide 20 L Glucose 107 H POC Glucose 111 H Albumin LDL Cholesterol Direct HDL Cholesterol 02/18/19 02/18/19 04:07 04:07 Loving % (Auto) 8.6 H Carbon Dioxide 21 L Glucose POC Glucose Albumin 3.5 L LDL Cholesterol Direct 140 H HDL Cholesterol 35 L Assessment and Plan Patient is a 48 y/o woman w/ no significant PMH, who p/w LLE weakness and difficulty writing. Symptoms have now resolved. According to the patient's clinical findings, it is possible that the patient has had a TIA. Alternatively, she may have conversion d/o, as patient states she felt "panicked" at time of symptoms onset, and also had shortness of breath. Plan: 1. TIA vs. conversion d/o: - MRI pending - CTA head/neck: no significant stenosis - Echo: EF 55-60%, LA normal size, bubble study negative. - Cont. ASA - LDL 140, cont. statin. LDL goal <70. - Telemetry monitoring while in house. - PT/OT/ST - Blood pressure: recommend BP target of normotension, as symptoms have resolbed, and no large vessel occlusion on CTA. - Will continue to monitor patient. Thank you for allowing me to take part in the care of this patient. Evelio De La Paz MD Neurology
--- NOTE | 2019-02-18 13:32 | Magnetic Resonance Report ---
MRI BRAIN WITHOUT CONTRAST INDICATION / CLINICAL INFORMATION: stroke. Symptoms include left leg weakness. TECHNIQUE: Multiplanar, multisequence MR images of the brain were obtained. COMPARISON: Head CT on 02/17/2019. FINDINGS: BRAIN / INTRACRANIAL CONTENTS: No acute ischemia, acute hemorrhage, mass effect, midline shift, or hy drocephalus. No chronic infarct or significant atrophy. No significant demyelinating changes. CRANIOCERVICAL JUNCTION: No significant abnormality. VASCULAR FLOW-VOIDS: No significant abnormality. ORBITS: No significant abnormality of visualized orbits. SINUSES / MASTOIDS: No significant abnormality of visualized sinuses and mastoid air cells. ADDITIONAL FINDINGS: None. IMPRESSION: Essentially normal brain MRI for age. Signer Name: Kashmir Gonzales MD Signed: 02/18/2019 1:28 PM Workstation Name: [employer]
== END 2019-02-18 16:15 | disposition home or self-care (01) ==
LOC: ED 16:14 → 4A 20:09 → INTOOBSV 20:09
PROVIDERS: ADMIT Internal Medicine; ATTEND Internal Medicine
DX: G45.9 Transient cerebral ischemic attack, unspecified (principal); K11.1 Hypertrophy of salivary gland; Z98.890 Other specified postprocedural states; Z90.49 Acquired absence of other specified parts of digestive tract
CPT/HCPCS: 36415; 70450; 70496; 70498; 70551; 80048; 80053; 80061; 82962; 83036; 84484; 85025; 85610; 85670; 85730; 93005; 93010; 93306; 96372; 96374; 96375; 97161; 99284; A9270; G0378; J1644; J2060; J2270; J2405; J7030; Q9967